=== PATIENT | female | born 1955 | race Hispanic/Latino ===

== ENCOUNTER 2022-10-16 22:43 | Emergency (ER) | payer MEDICARE, MEDICAID, SELFPAY ==
--- NOTE | ~2022-10-16 | CT_ITS ---
EXAMINATION: CT abdomen pelvis w con DATE: 10/17/2022 00:17 INDICATION: epigastric pain, low abd pain upon palpation, N/V/D TECHNIQUE: Computed tomography (CT) of the abdomen and pelvis was performed with 100 mL Omnipaque-350 intravenous contrast. Automated exposure control and iterative reconstruction technique were employe d. The dose-length product was 415.25 mGy-cm. COMPARISON: None. FINDINGS: Lower thorax: Moderate hiatal hernia. Liver: Normal. Biliary/Gallbladder: Gallbladder is normal. No bile duct dilation. Pancreas: No mass or duct dilation. Spleen: Normal. Adrenals:No mass. Kidneys: Multiple bilateral simple cysts and hypodensities that are too small to characterize but mos t likely represent cysts. No suspicious mass, obstructing calcification, or hydronephrosis. GI tract: Moderate distal esophageal and mild gastric wall edema No small or large bowel dilation. Mi ld distal ileal and cecal wall edema with minimal surrounding inflammatory change. Normal appendix. Mesentery/Peritoneum: No ascites, mass, or free air. Retroperitoneum: No mass. Atherosclerotic abdominal aortic and/or arterial calcifications. Pelvis: The uterus is surgically absent. Moderate bladder distention. Soft Tissues: Soft tissues and body wall unremarkable. Bones: No acute osseous finding. IMPRESSION: Moderate esophagitis. Mild gastritis. Enteritis involving the distal ileum and cecum. Moderate bladde r distention, correlate with symptoms of urinary retention. Reviewed, dictated and finalized at location K. ICAL QUALITY ASSURANCE SPECIALIST IMPRESSION: Moderate esophagitis. Mild gastritis. Enteritis involving the distal ileum and cecum. Moderate bladder distention, correlate with symptoms of urinary retentio n.
--- NOTE | ~2022-10-16 | XR_ITS ---
EXAMINATION: XR chest 2V Exam Date/Time: 10/16/2022 0:15 LICENSED PSYCHOLOGIST MANAGER HISTORY: cough, congestion, fever Comparison: None available. RESULT: Lines, tubes, and devices: None. Lungs and pleura: Clear. Mild senescent change. Cardiomediastinal silhouette: Unremarkable. Other: No acute osseous or upper abdominal finding. IMPRESSION: No acute cardiopulmonary process. Reviewed, dictated and finalized at location K. NSED PSYCHOLOGIST MANAGER
[2022-10-16 22:50] VITALS: BP 169/93; PULSE 118; RESP 18; TEMP 37.4; O2SAT 97
--- NOTE | 2022-10-16 23:01 | ED.HA ---
HPI - Headache General Chief Complaint: Headache <AUSTIN Luna Last Filed: 10/17/22 18:43> Stated Complaint: Headache w n/v, unable to fill high BP meds <AUSTIN Luna Last Filed: 10/17/22 18:43> Time Seen by Provider: 10/16/22 22:49 <AUSTIN Luna Last Filed: 10/17/22 18:43> Limitations: language barrier <AUSTIN Luna Last Filed: 10/17/22 18:43> History of Present Illness HPI Narrative: Patient is a 67-year-old Amharic-speaking female here for evaluation of body aches, sinus congestion, frontal headache, and cough for the past several days. Patient denies sick contacts. She states that the headache is mild and frontal in nature, came on gradually and has been intermittent since. She had transient relief after taking ibuprofen today. No trauma to head. She states that she had suprapubic/epigastric abdominal pain, 1 episode of vomiting today and also had several episodes of loose stool, and has been experiencing urinary frequency. Denies neck stiffness, dysuria, hematuria or back pain. Additionally notes that she has been unable to get her lisinopril/hydrochlorothiazide refilled due to insurance issues but has been compliant with her amlodipine. <AUSTIN Luna Last Filed: 10/17/22 18:43> Related Data Allergies/Adverse Reactions: Allergies Allergy/AdvReac Type Severity Reaction Status Date / Time No Known Allergies Allergy Verified 10/16/22 22:46 <AUSTIN Luna Last Filed: 10/17/22 18:43> Review of Systems Review of Systems: Gen: Reports fevers. Denies fevers or chills Eyes: Denies eye pain or visual change ENT: Reports congestion Respiratory: Reports cough. Denies shortness of breath CV: Denies chest pain or palpitations GI: Denies abdominal pain nausea, emesis or diarrhea : denies burning, urgency, frequency or hematuria Musculoskeletal: Denies back pain or muscle pain Neuro: Denies numbness, tingling, weakness or focal weakness Skin: Denies rash Except as documented, all other systems reviewed and negative <Lois Stearns PA-C - Last Filed: 10/17/22 18:43> Exam Narrative: APPEARANCE: Well appearing, no pain in distress, well-nourished. Head: Normocephalic and atraumatic. EYES: PERRLA/EOMI, conjunctivae clear NOSE: No nasal drainage EARS: External ear normal in appearance THROAT: Oropharynx is clear. Mucous membranes are moist. NECK: Supple. No adenopathy, no masses. RESPIRATORY: Airway patent, respirations nonlabored. Clear to auscultation bilaterally, no rales, rhonchi, wheezing. CARDIOVASCULAR: Tachycardic. regular rate and rhythm without murmurs, rubs, or gallops. ABDOMINAL: Hyperactive bowel sounds. Soft, nontender, nondistended. No rebound tenderness or guarding. MUSCULOSKELETAL: Extremities are warm and well-perfused. Moves all extremities well. No edema. NEURO: Cranial nerves II through XII intact. 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 Normal speech. No focal neurologic deficits. SKIN: Skin is warm and dry. No rashes. PSYCHIATRIC: Normal affect/mood. <Lois Stearns PA-C - Last Filed: 10/17/22 18:43> Course POWERTRAIN CALIBRATION ENGINEER/PA Physician Supervision For this encounter, I have reviewed the PA documentation, treatment plan and medical decision making: And I have had [id number] time with the patient. Heart regular rate and rhythm without murmur, lungs clear to station bilaterally the abdomen is soft and nontender. Patient is eating and drinking in ED states she is feeling much better. It was discussed with the patient her hyponatremia and the patient would prefer to go home with follow-up patient follow-up for repeat lab work with PCP <Irineo Hutson DO - Last Filed: 10/17/22 03:15> Vital Signs Vital signs: Vital Signs Temperature 99.4 F 10/16/22 22:50 Pulse Rate 118 H 10/16/22 22:50 Respiratory Rate 18 10/16/22 22:50 Blood Pressure 169/93 H 10/16/22 22:50 Pul
[2022-10-16] MEDS: SODIUM CHLORIDE 0.9% IV 1,000 ML 999 ML IV CONT (23:09)
[2022-10-16] MEDS: ONDANSETRON INJ 4 MG/2 ML VIAL IV PUSH (23:10)
[2022-10-16] MEDS: FAMOTIDINE 20 MG/2 ML VIAL IV PUSH (23:10)
[2022-10-16 23:14] LABS: Basophils Percent Auto 0.2 % (0.2-1.2); Eosinophils Percent Auto 0.2 % (0-4.4); Hematocrit 35.1 % (37.0-47.0); Hemoglobin 12.5 g/dL (12.0-15.0); Immature Granulocyte Absolute 0.05 K/mm3 (0.00-0.031); Immature Granulocyte Percent A 0.4 % (0-0.5); Mean Corpuscular HGB Conc 35.6 g/dl (32-36); Mean Corpuscular Hemoglobin 30.5 pg (26-34); Mean Corpuscular Volume 85.6 fl (80-100); Mean Platelet Volume 9.3 fl (7.4-10.4); Monocytes Percent Auto 7.4 % (2.6-8.5); Neutrophils Absolute Auto 10.7 K/mm3 (1.3-6.7); Neutrophils Percent Auto 81.8 % (45.5-73.1); Platelet Count Result 281 k/mm3 (150-375); Red Cell Distribution Width 12.6 % (11.5-14.5); White Blood Count 13.1 K/mm3 (4.5-10.0)
[2022-10-16 23:17] VITALS: O2SAT 99
[2022-10-16 23:19] VITALS: BP 152/60; O2SAT 99
[2022-10-16 23:25] LABS: Lactic Acid Reflex 1.5 mmol/L (0.7-2.0)
[2022-10-16 23:26] LABS: Alanine Aminotransferase 24 U/L (6-35); Albumin Level 4.8 g/dL (3.5-5.1); Alkaline Phosphatase 97 U/L (38-126); Anion Gap 11 mmol/L (8-16); Aspartate Amino Transferase 29 U/L (14-36); Bilirubin,Total 0.8 mg/dL (0.2-1.3); Blood Urea Nitrogen 11 mg/dL (7-17); Calcium 9.4 mg/dL (8.4-10.2); Carbon Dioxide 25 mmol/L (22-30); Chloride 89 mmol/L (98-107); Estimated Glomerular Filt Rate > 60; Glucose 130 mg/dL (65-110); Lipase 77 U/L (23-300); Potassium 3.5 mmol/L (3.4-5.0); Sodium 125 mmol/L (137-145)
[2022-10-16 23:30] VITALS: O2SAT 100
[2022-10-16 23:31] VITALS: BP 150/57; O2SAT 100
[2022-10-16 23:39] LABS: Influenza A QL RT-PCR Negative (Negative); Influenza B QL RT-PCR Negative (Negative); SARS-CoV-2 RNA PCR Negative
[2022-10-16 23:45] VITALS: O2SAT 97
[2022-10-17] VITALS (13 sets, daily range): BP systolic 137–144; BP diastolic 60–67; PULSE 96; O2SAT 96–99
[2022-10-17] MEDS: SODIUM CHLORIDE 0.9% IV 1,000 ML 999 ML IV CONT (00:32)
[2022-10-17 00:43] LABS: Appearance Urine Clear (Clear); Bilirubin Urine Negative (Negative); Blood Urine 1+ (Negative); Color Urine Yellow (Yellow); Glucose Urine UA Negative (Negative); Ketones Urine Negative (Negative); Leukocyte Esterase Ur Negative LEU/UL (Negative); Nitrate Urine Negative (Negative); Protein Urine Negative (Negative); Urobilinogen Urine 0.2 mg/dL (<2.0)
[2022-10-17 00:46] LABS: Add Urine Microscopic? YES; RBC Urine 0-2 /hpf (0-2)
[2022-10-17 00:46] LABS: Magnesium 1.5 mg/dL (1.6-2.3)
[2022-10-17] MEDS: MAGNESIUM SULF 2 GM/WATER 50ML 2 GM/50 ML BAG IVPB (01:06)
== END 2022-10-17 02:12 | disposition home or self-care (01) ==
PROVIDERS: Physician Assistant; Emergency Provider Emergency Medicine; PCP Registered Nurse
DX: K52.9 Noninfective gastroenteritis and colitis, unspecified (principal); Z20.822 Contact with and (suspected) exposure to COVID-19
CPT/HCPCS: 36415; 71046; 74177; 80053; 81001; 83605; 83690; 83735; 85025; 87636; 96365; 96367; 96375; 99284; J0131; J2405; J3475; J7030; Q9967

== ENCOUNTER 2025-08-19 11:32 | Emergency (ER) | payer MEDICAID, OTHER, SELFPAY ==
--- NOTE | ~2025-08-19 | XR_ITS ---
EXAMINATION: XR tibia fibula LT 2V, 08/19/2025 14:10 CDT HISTORY: eval retained fb calf; dog bite COMPARISON: No comparisons available. Findings: No acute fracture or malalignment. No significant degenerative changes. No radiopaque foreign body is identified. Impression: No acute fracture or malalignment. Reviewed, dictated and finalized at location P. Impression: No acute fracture or malalignment.
--- NOTE | ~2025-08-19 | XR_ITS ---
EXAMINATION: XR humerus LT DATE: 08/19/2025 14:17 INDICATION: Dog bite to the left upper arm. Assess for foreign body. TECHNIQUE: AP and lateral views of the left humerus were obtained. COMPARISON: None. FINDINGS: Bone alignment is normal. No fracture. Mild osteoarthritis at the left acromioclavicular, glenohumeral and elbow joints. Soft tissues are unremarkable with no soft tissue gas or radiopaque foreign bodies. IMPRESSION: 1. Mild osteoarthritis of the left elbow and shoulder. No acute osseous abnormality or radiopaque foreign body. Reviewed, dictated and finalized at location A. IMPRESSION: 1. Mild osteoarthritis of the left elbow and shoulder. No acute osseous abnorma lity or radiopaque foreign body.
[2025-08-19 11:35] VITALS: BP 175/84; PULSE 112; RESP 16; TEMP 37; O2SAT 98
--- NOTE | 2025-08-19 13:45 | ED_ITS ---
HPI - Animal Bite General Chief Complaint: Animal Bite Stated Complaint: dog bite Time Seen by Provider: 08/19/25 13:21 Source: patient and family Mode of arrival: ambulatory Limitations: language barrier (family member provides translation/collateral information) History of Present Illness HPI narrative: Right hand dominant Patient presents after a sustaining a dog bite. No fever. Not believed to be on anticoagulation. This was a neighbor's dog. Has previously barked at patient from behind a fence and chased things but not fenced in today, in front of the house and ran after her. Unknown if dog up to date on shots. Patient has a headache. Police trying to contact owners as they were not around. Patient got their RSV and shingles shots yesterday. Has not yet taken anything for pain. No antibiotic allergies. Unknown tetanus vaccination status. Got bit in left upper arm and left calf. Has a PCP, Dr Florencia Coronado in [place]. Related Data Allergies Allergy/AdvReac Type Severity Reaction Status Date / Time No Known Allergies Allergy Verified 08/19/25 11:36 [facility] Past Medical History Medical History (Updated 08/22/25 @ 20:59 by Sharifa Olivas MD) Herpes zoster vaccine administerd 08/18/25 Right hand dominant High cholesterol Hypertension Diabetes mellitus Exam Narrative: GENERAL: Well-appearing, well-nourished, and in no acute distress. HEAD: Normocephalic, atraumatic. EYES: Non injected, non icteric ENT: Nares clear, no rhinorrhea or epistaxis. Gross auditory acuity intact. NECK: Supple. No meningismus. CHEST: Speaking in full sentences. No respiratory distress. HEART: Tachycardic rate and rhythm. . ABDOMEN: Soft, nondistended. EXTREMITIES: Normal range of motion. Extremities are warm and well perfused SKIN: Warm, dry. Ecchymosis in the area of the tricep on the left; no active bleeding, mild induration at the center without appreciable abscess. Ecchymosis of the left calf as well with some induration at the center without abscess. No active bleeding. NEURO: No focal deficits. Alert and oriented. Answering questions. Following commands. Normal speech without aphasia or dysarthria. Sensation intact throughout left upper and lower extremities PSYCH: Normal mood and affect. Course Vital Signs Vital signs: Vital Signs Temperature 98.6 F 08/19/25 11:35 Pulse Rate 112 H 08/19/25 11:35 Respiratory Rate 16 08/19/25 11:35 Blood Pressure 175/84 H 08/19/25 11:35 Pulse Oximetry 98 08/19/25 11:35 Oxygen Delivery Room Air 08/19/25 11:35 Temperature 98 F 08/19/25 15:32 Pulse Rate 102 H 08/19/25 15:32 Respiratory Rate 16 08/19/25 15:32 Blood Pressure 160/98 H 08/19/25 15:32 Pulse Oximetry 95 08/19/25 15:32 Oxygen Delivery Room Air 08/19/25 11:35 MDM - Animal Bite MDM Narrative Medical decision making narrative: Right hand dominant Patient presents after being bitten by a neighbor's dog in the left upper and lower extremities. Dog's vaccination status unknown but dog was not in enclosed fence area like it usually is. In the emergency department he is afebrile with vital signs that show tachycardia and hypertension. Unknown tetanus status so updated today. Prescribed OTC analgesic meds and Augmentin. Advised follow up and given return precautions. Otherwise stable for discharge. Differential Diagnosis Differential diagnosis: Likely bite by animal, dog bite and rabies contact (considered) Lab Data Attestation: I reviewed the patient's lab results. Labs: Lab Results 08/19/25 Range/Units 15:21 POC Capillary Glucose 146 H (65-105) mg/dl Imaging Data Radiologist's impression: IMPRESSION: 1. Mild osteoarthritis of the left elbow and shoulder. No acute osseous abnormality or radiopaque foreign body. Impression: No acute fracture or malalignment. Discharge Plan Discharge Clinical Impression: Osteoarthritis of left elbow, Osteoarthritis of left shoulder, Dog bite of left upper extremity, Dog bite of left calf Patient Disposition: Home Condition: Stable Instructions: Antibiotic Form, Animal Bite (ED), Osteoarthritis (DC) Additional Instructions: No evidence of retained foreign body such as a tooth. Keep the area clean warm and dry. You are given your 1st dose of antibiotic in the emergency department rest the course has been prescribed. Recommend following up with your primary care provider for a wound check in the next 24 hours if possible. Return to the emergency department with new/worsening symptoms such as spreading/streaking redness, fever >100.4F, etc. as that may warrant the need for IV antibiotics. Acetaminophen/Tylenol (maximum 4000 mg per day) is safe to take with NSAIDs (ibuprofen/Motrin) for pain relief. If the dog is caught/deemed to be high risk or tests positive for rabies, return to the ED. Patient Language: Georgian Prescriptions: New amoxicillin-pot clavulanate 875-125 mg tablet 1 tablet PO Q12H 7 Days Qty: 13 0RF Rx Instructions: rec'd first dose in ED acetaminophen 500 mg capsule 1,000 mg PO Q6H PRN (Reason: pain) Qty: 30 0RF ibuprofen 200 mg capsule 600 mg PO Q8H PRN (Reason: fever or pain) Qty: 30 0RF No Action ondansetron 4 mg tablet,disintegrating 4 mg PO Q8H PRN (Reason: nausea and vomiting) Qty: 10 0RF Follow-up/Referrals: Alonzo,JENNIFER Montez [Primary Care Provider] Stand Alone Forms: Work/School Release IP Time of Disposition: 14:55
[2025-08-19] MEDS: TETANUS,DIPHTHERIA,AC PERTUSSIS ADULT (0.5 ML) BOOSTRIX IM (14:25)
[2025-08-19] MEDS: HYDROcodone/acetaminophen (*CRX) 5-325 MG TABLET 1 TAB PO (14:25)
[2025-08-19 15:32] VITALS: BP 160/98; PULSE 102; RESP 16; TEMP 36.6; O2SAT 95
--- OUTSIDE RECORDS SUMMARY | 2025-08-19 16:45 | XMS_ITS | Encounter Summary ---
Author Organization [facility] Address [address] [place] [id number] Care Team Providers Care Master Welder Name Role Phone Jes Omer MD Primary Care Provider Unavailable Encounter Details Date Type Department Care Team (Late st Contact Info) Description 09/09/2017 [place] [address] Jes Omer MD Social History Tobacco Use Types Packs/Day Years Used Date Smoking Tobacco: Never Assessed Comments Unknown Sex and Gender Information Value Date Recorded Sex Assigned at Not on file Legal Sex Female 7:51 PM CDT Gender Identity Not on file Sexual Orientation Not on file documented as of this encounter Plan of Treatment Not on file documented as of this encounter Visit Diagnoses Not on filedocumented in this encounter Care Teams Master Welder Relationship Specialty Start Date End Date Jes Omer MD PCP - General 11/21/14 documented as of this encounter
--- OUTSIDE RECORDS SUMMARY | 2025-08-19 16:45 | XMS_ITS | Clinical Summary ---
Author Organization [facility] Address [address] [place] [id number] Care Team Providers Care Cafe Operator Name Role Phone Unavailable Primary Care Provider Unavailabl e Social History Tobacco Use Types Packs/Day Years Used Date Smoking Tobacco: Never Assessed Comments Unknown Sex and Gender Information Value Date Recorded Sex Assigned at Not on file Legal Sex Female 7:51 PM CDT Gender Identity Not on file Sexual Orientation Not on file Plan of Treatment Health Maintenance Due Date Last Done Comments Colorectal Cancer Screening Colonoscopy (10 Years) 1953 Hepatitis C 1971 DTaP, Tdap and Td Vaccines ( 1 - Tdap) 01/06/1972 Mammogram Screening 1993 Pneumococcal Vaccine: 50+ Ye ars (1 of 1 - PCV) 2003 Zoster Vaccines (1 of 2) 2003 Dexa Scan (General) 2018 COVID-19 Vaccine ( - 2023-2 5 season) 2025 Influenza Adult (#1) 2025 RSV Immunization or 60+ Years (1 - 1-dose 75+ series) 01/06/2028 Meningococcal B Vaccine Aged Out No l onger eligible based on patient's age to complete this topic Meningococcal Vaccine Aged Out No florinda rebeca eligible based on patient's age to complete this topic RSV Immunizations Under 20 Months Aged Out No longer eligible based on patient's age to complete this topic
== END 2025-08-19 15:37 | disposition home or self-care (01) ==
PROVIDERS: Emergency Provider Student in an Organized Health Care Education/Training Program; PCP Registered Nurse
DX: S41.152A Open bite of left upper arm, initial encounter (principal); S81.852A Open bite, left lower leg, initial encounter; M19.022 Primary osteoarthritis, left elbow; M19.012 Primary osteoarthritis, left shoulder; W54.0XXA Bitten by dog, initial encounter; Z23 Encounter for immunization
CPT/HCPCS: 73060; 73590; 82948; 90471; 90715; 99284; A9270